=== PATIENT | male | born 1950 | race Caucasian/White ===

== ENCOUNTER 2022-03-26 06:21 | Day surgery (SDC) | payer MEDICARE, BC ==
[~2022-03-26 06:21] MED LIST: Dextrose 5%-0.45% NaCl 1,000 ML IV SCH; Sodium Chloride 0.9% 10 ML Syringe FLUSH PRN; Sodium Chloride 0.9% 10 ML Syringe FLUSH SCH
[2022-03-26] MEDS ORDERED: fentaNYL 100 MCG/2 ML SDV IV ONE ×4 (06:22→07:50)
[2022-03-26] MEDS ORDERED: Midazolam 1 MG/ML 2 ML SDV IV ONE ×7 (06:22→07:47)
[2022-03-26] MEDS ORDERED: Midazolam 1 MG/ML 2 ML SDV ONE (06:42)
[2022-03-26] MEDS ORDERED: fentaNYL 100 MCG/2 ML SDV ONE (06:42)
[2022-03-26 09:51] VITALS: BP 123/71; PULSE 68
== END 2022-03-26 09:55 | disposition home or self-care (01) ==
LOC: DL.ENDO 06:21
PROVIDERS: ATTEND Internal Medicine Gastroenterology
DX: K59.00 Constipation, unspecified (principal); I10 Essential (primary) hypertension; H81.10 Benign paroxysmal vertigo, unspecified ear; N40.0 Benign prostatic hyperplasia without lower urinary tract symptoms; E78.00 Pure hypercholesterolemia, unspecified; E66.09 Other obesity due to excess calories; Z87.828 Personal history of other (healed) physical injury and trauma; Z98.890 Other specified postprocedural states; Z01.812 Encounter for preprocedural laboratory examination; Z20.822 Contact with and (suspected) exposure to COVID-19; Z68.25 Body mass index [BMI] 25.0-25.9, adult
CPT/HCPCS: J2250; J3010; J7042; U0002